=== PATIENT | male | born 1965 | race Caucasian/White ===

== ENCOUNTER → 2019-07-12 | Outpatient (CLI) | payer OTHER ==
[~2019-07-12] MED LIST: ISOS30TA4 PO; NAPR-514 PO; PANT40TA77 PO
--- NOTE | 2019-07-19 11:59 | RAD ---
MR#: [id number] Date of Study: 07/12/2019 Ordering Physician: LAURENCE FERRARA, Referring Physician: ANGEL MARTELL Tech: Wale Hightower RT (R) (N) APPROVED REPORT Imaging Protocol IMAGE PROTOCOL: Rest/delayed rest Rest: Stress: Viability: Radiopharm.Tc99m Sestamibi Dose11.0mCi Duration 45min. Img Date 07/12/2019 Inj-Img [id number]. LV Perf. Quant 17 Seg. SRS0.00 Stress Defect Extent (% LAD)Rest Defect Extent (% LAD)0.00Rev. Defect Extent (% LAD) Stress Defect Extent (% LCX) Rest Defect Extent (% LCX)0.00Rev. Defect Extent (% LCX) Stress Defect Extent (% RCA)Rest Defect Extent (% RCA)0.00Rev. Defect Extent (% RCA) Stress Defect Extent (% RICK)Rest Defect Extent (% RICK)0.00Rev. Defect Extent (% RICK) Conclusion 1. This is a non-gated limited rest only study. 2. Normal perfusion at rest. 3. Patient was supposed to return for a stress evaluation but has not yet done so. Recommendations Recommend complete study when patient is amenable to performing repeat today stress rest perfusion. Signed by : Jonny Downs, Electronically Approved : 07/19/2019 11:59:31
== END | disposition home or self-care (01) ==
LOC: EEVIPCON 09:00 → NM 10:15
DX: R07.9 Chest pain, unspecified (principal)
CPT/HCPCS: 78451; A9500